=== PATIENT | female | born 1990 | race Hispanic/Latino ===

== ENCOUNTER 2017-04-25 08:53 | Day surgery (SDC) | payer OTHER ==
--- NOTE | 2017-04-24 21:52 | Short Stay Summary ---
Short Stay Documentation Date of service: 04/25/17 Narrative H&P: Seen and examined on DOS and consent signed, previously discussed in office. No changes noted but had pulse of 41 in pre-op area, anesthesia notified. - History Principal diagnosis: retained IUD, Mirena, seen in uterus in office, no strings Past Medical History: No medical history, other () Past Surgical History: Other (breast bx 2017 fibroadenoma) Social history: no significant social history, - Allergies and Medications Current Medications: Allergies No Known Allergies Allergy (Unverified 04/19/17 14:17) Home Medications Medication Instructions Recorded Confirmed Last Taken Type No Known Home Medications [No 04/19/17 04/19/17 Unknown History Reported Home Medications] - Physical exam General appearance: no acute distress HEENT: Atraumatic Lungs: Clear to auscultation Breasts: deferred Heart: Regular rate, No murmurs Gastrointestinal: normal Female Genitourinary: normal Rectal Exam: deferred Extremities: no ischemia Neurological: Normal gait, Normal speech, Normal tone, Cranial nerves 3-12 NL - Brief post op/procedure progress note Date of procedure: 04/25/17 Pre-op diagnosis: retained Mirena IUD Post-op diagnosis: same Procedure: Hysteroscopic removal of IUD Anesthesia: MAC Findings: Normal intrauterine cavity and normal cervix Surgeon: ADRIANE SAMAYOA Estimated blood loss: minimal Pathology: none Specimen disposition: given to patient/family Condition: stable - Hospital course Hospital course: Did well and PACU and discharged home in good condition - Disposition Condition at discharge: Good Disposition: DC-01 TO HOME OR SELFCARE - Discharge Diagnoses (1) IUD strings lost Status: Acute Qualifiers: Encounter type: initial encounter Qualified Code(s): T83.32XA - Displacement of intrauterine contraceptive device, initial encounter Short Stay Discharge Plan Prescriptions: Ibuprofen [Motrin 600 MG tab] 600 mg PO Q8H PRN #30 tablet PRN Reason: Pain
[~2017-04-25 08:53] MED LIST: NACL 0.9% IR ONE
[2017-04-25] MEDS ORDERED: NACL BACTERIOSTATIC INFILTRATI ONE (09:56)
--- NOTE | 2017-04-25 10:03 | Anesthesia Consultation ---
Anesthesia Consult and Med Hx Date of service: 04/25/17 - Airway Anesthetic Teeth Evaluation: Good ROM Head & Neck: Adequate Mental/Hyoid Distance: Adequate Mallampati Class: Class I Intubation Access Assessment: Probably Good - Pulmonary Exam CTA: Yes - Cardiac Exam Cardiac Exam: RRR - Pre-Operative Health Status ASA Pre-Surgery Classification: ASA1 Proposed Anesthetic Plan: General - Pulmonary Hx Smoking: No Hx Asthma: No - Cardiovascular System Hx Hypertension: No - Central Nervous System Hx Psychiatric Problems: No - Endocrine Hx Renal Disease: No - Other Systems Hx Alcohol Use: Yes (occas) Hx Cancer: No
--- NOTE | 2017-04-25 10:03 | Anesthesia Day of Surgery ---
Anesthesia Day of Surgery - Day of Surgery Patient Examined: Yes Patient H&P Reviewed: Yes Patient is NPO: Yes
[2017-04-25] MEDS ORDERED: DIPRIVAN 10 MG/ML IV ONE (10:11)
[2017-04-25] MEDS ORDERED: XYLOCAINE MPF 2% ONE (10:12)
[2017-04-25] MEDS ORDERED: ZOFRAN ONE (10:12)
[2017-04-25] MEDS ORDERED: DECADRON ONE (10:12)
[2017-04-25] MEDS ORDERED: VERSED IV NR (10:30)
[2017-04-25] MEDS ORDERED: PEPCID PO NR (10:30)
[2017-04-25] MEDS ORDERED: ROBINUL ONE (10:58)
[2017-04-25] MEDS ORDERED: LACTATED RINGERS 1,000 ML IV SCH (11:00)
--- NOTE | 2017-04-25 11:24 | Operative Report ---
Operative Report Operative Report: Date of procedure: 04/25/2017 Pre-operative diagnosis: 26-year-old with retained Mirena unable to be removed in the office and no strings visible. Mirena is due to be replaced Post-operative diagnosis: Same Procedure name(s): Operative hysteroscopy and removal of Mirena IUD with polyp forceps Surgeon: Ayesha West M.D. Sexual Health Physician: LEONILA Anesthesia: Mac Findings: Normal intrauterine cavity EBL: Less than 5 mL Procedure in detail: Patient was taken operating room, placed supine position. After adequate anesthesia was obtained using a mask. She was placed in the dorsolithotomy position and prepped and draped in the usual fashion. Surgical timeout was taken with all members of the team attentive. Examination under anesthesia revealed a small anteflexed uterus with no adnexal masses, and the bladder was sterilely drained of a small amount of urine. The cervix was exposed with retractors and grasped vertically with a single-tooth tenaculum and serially dilated to a #19 dilator. The 12 hysteroscope was placed through the cervix and the cervix and the intrauterine cavity were both noted to be normal. There was an IUD in the uterine cavity with its strings wrapped around it. The surgical polyp forceps was then passed through the hysteroscope operative port and on the second attempt. We were able to grasp the strings and remove the hysteroscope and the IUD at the same time. Hysteroscope was reinserted and the uterus and there was no active bleeding. Both ostia could be easily visualized and there were no other abnormalities noted. The procedure was then terminated and the instruments were all removed. Patient was placed back in the supine position and then awakened and discharged to PACU in good condition. Fluid out was measured at 1750 mL and there was some spillage on the floor starting amount of 2000 mL.
[2017-04-25 17:36] VITALS: BP 99/55
== END 2017-04-25 13:40 | disposition home or self-care (01) ==
LOC: OR 08:53
PROVIDERS: ATTEND Obstetrics & Gynecology
DX: Z30.432 Encounter for removal of intrauterine contraceptive device (principal); Z98.890 Other specified postprocedural states; Z72.89 Other problems related to lifestyle
CPT/HCPCS: 58562; 81025; 93005; 93010; J1100; J2250; J2405; J2704; J7120